=== PATIENT | female | born 1995 | race Caucasian/White ===

== ENCOUNTER 2016-05-15 07:23 | Emergency (ER) | payer BC, OTHER ==
[2016-05-15 07:42] VITALS: BP 118/95; PULSE 90; RESP 18; TEMP 98.4; O2SAT 95
[2016-05-15] MEDS ORDERED: TDAP ADULT 0.5 ML INJ (BOOSTRIX) IM ONE (07:52)
--- NOTE | 2016-05-15 07:54 | UCPHY ---
H & P Time Seen by Provider: 05/15/16 07:44 Patient Type: Established HPI/ROS: AdultChief complaint. Finger laceration HPI. 21-year-old female was unloading the gauger delivery this morning and grazed her right 4th and 5th fingers against a sharp knife as she was unloading the gauger delivery. Blood quite a bit initially. Bleeding was controlled by pressure. Denies focal weakness or paresthesias. No sense of retained foreign body. Not up-to-date on tetanus immunization ROS Constitutional. no fever/chills, no weakness Eyes. no problems with vision ENT. no sore throat, no nasal drainage Cardiovascular. no chest pain Respiratory. no shortness of breath, no cough Abdominal. no abdominal pain, no nausea/vomiting, no diarrhea . no problems urinating MS. no calf pain/swelling, no neck/back pain, no joint pain Skin. Laceration right 4th and 5th fingers Lymph. no swollen glands Neuro. no headache, no dizziness, no difficulty walking or with speech Past Medical/Surgical History: Past medical history GERD, bipolar, cholecystectomy, appendectomy Social History: Single, nonsmoker, no alcohol Smoking Status: Never smoked Physical Exam: General Appearance: Alert pleasant well-developed female mild distress vital signs are stable Eyes: Pupils equal and round no pallor or injection. ENT, Mouth: Mucous membranes are moist. Respiratory: There are no retractions, lungs are clear to auscultation. Cardiovascular: Regular rate and rhythm. Gastrointestinal: Abdomen is soft and nontender, no masses, bowel sounds normal. Neurological: Awake and alert, sensory and motor exams grossly normal. Skin: Warm and dry, no rashes. Musculoskeletal: Neck is supple nontender. Extremities on the dorsum of the distal right 4th finger there is a 3 mm laceration just proximal to the cuticle. No bleeding. No evidence of foreign body. In the same location on the right 5th digit there is a 2 mm laceration. Again good approximation, no bleeding, no evidence for foreign body Psychiatric: Patient is oriented X 3, there is no agitation. Constitutional: Initial Vital Signs Temperature (C) 36.9 C 05/15/16 07:37 Heart Rate 90 05/15/16 07:37 Respiratory Rate 18 05/15/16 07:37 Blood Pressure 118/95 H 05/15/16 07:37 O2 Sat (%) 95 05/15/16 07:37 O2 Delivery Mode Room Air Allergies/Adverse Reactions: oxycodone HCl [From Percocet] Allergy (Intermediate, Verified 03/22/15 17:26) Rash aripiprazole [From Abilify] Allergy (Unknown, Verified 03/22/15 17:26) amoxicillin trihydrate [From Augmentin] Allergy (Verified 03/22/15 17:26) potassium clavula *RETIRED-12/19/11 [From Augmentin] Allergy (Verified 03/22/15 17:26) prochlorperazine [From Compazine] Allergy (Verified 03/22/15 17:26) prochlorperazine edisylate [From Compazine] Allergy (Verified 03/22/15 17:26) prochlorperazine maleate [From Compazine] Allergy (Verified 03/22/15 17:26) sulfamethoxazole [From Septra DS] Allergy (Verified 03/22/15 17:26) DIZZY trimethoprim [From Septra DS] Allergy (Verified 03/22/15 17:26) DIZZY PERCOCET Allergy (Intermediate, Uncoded 03/22/15 17:26) RASH, AGGITATED Home Medications: Medication Instructions Recorded SEROQUEL 04/12/09 Fish Oil 08/31/10 Melatonin 08/31/10 Clonazepam 03/22/15 Fludrocortisone Acetate 03/22/15 LaMICtal 03/22/15 Levothyroxine 03/22/15 Lexapro 03/22/15 [place] Carbonate 03/22/15 Topical Wash 03/22/15 Zantac 03/22/15 MDM/Departure - MDM ED Course/Re-evaluation: Wounds are cleaned and Steri-Strips applied to both 4th and 5th digits. Patient is given a tetanus shot. Patient and I discussed treatment plan including criteria for return and importance of follow-up and further evaluation. She expresses understanding and agreement Differential Diagnosis: I considered suturable laceration, retained foreign body, infection potential - Depart Disposition: Home, Routine, Self-Care Clinical Impression: Finger laceration Qualifiers: Encounter type: initial encounter Qualifier Code: (S61.219A) Laceration without foreign body of unspecified finger without damage to nail, initial encounter Condition: Good Instructions: Laceration Without Closure (ED) Additional Instructions: Keep the cut it is clean and dry. You may shower and wash your hands with Steri -Strips on. Avoid immersion. Leave Steri-Strips on 5-7 days. Return for signs of infection. Follow up with your regular physician, Dr. Forbes, for any continuing problems with your laceration [place]errals: [place],. [Primary Care Provider] - As per Instructions - PQRS PQRS Measurement: 134: Depression screening and followup, PRIME MD-PHQ2 (12 years and older) Over the last 2 weeks, how often have you been bothered by any of the following problems? 1. Feeling down, depressed, or hopeless? 2. Little interest or pleasure in doing things? Patient answered no to both 1 and 2 130: Documentation of medications. Reviewed all patient medications, doses, route and frequency. 226: Do you smoke? No.
== END 2016-05-15 08:02 | disposition home or self-care (01) ==
LOC: CED 07:23
DX: S61.214A Laceration without foreign body of right ring finger without damage to nail, initial encounter (principal); S61.216A Laceration without foreign body of right little finger without damage to nail, initial encounter; K21.9 Gastro-esophageal reflux disease without esophagitis; Z88.8 Allergy status to other drugs, medicaments and biological substances; Z23 Encounter for immunization; W26.0XXA Contact with knife, initial encounter
CPT/HCPCS: 99213-PO; G0463-PO